=== PATIENT | female | born 1940 | race Caucasian/White ===

== ENCOUNTER 2016-10-15 11:36 | Inpatient (IN) | payer OTHER ==
[~2016-10-15] VITALS: Ht 154.9 cm; Wt 59.1 kg
[2016-10-15 14:22] LABS: EOSINOPHIL (%) 2.3 % (0-5); EOSINOPHIL COUNT 0.2 K/uL (0-0.3); HEMATOCRIT 38.8 % (36.0-46.0); IMMATURE GRANULOCYTE (%) 0.2 % (0.0-0.7); INSTRUMENT ABS NEUTROPHIL CT 4.4 K/uL; LYMPHOCYTE COUNT 1.6 K/uL (1.0-2.8); MCH 32.3 PG (29.0-34.0); MCV 94.9 FL (83-99); MEAN PLAT.VOLUME 10.7 uM^3 (9.5-12.4); MONOCYTE (%) 6.8 % (3-12); MONOCYTE COUNT 0.5 K/uL (0-0.8); NEUTROPHIL (%) 66.3 % (45-76); NEUTROPHIL COUNT 4.4 K/uL (1.8-6.4); PLATELET COUNT 187 K/uL (156-360); RBC DIS.WIDTH-CV 12.9 % (11.8-14.6); RBC DIS.WIDTH-SD 44.8 % (39-53); RED BLOOD COUNT 4.09 M/uL (3.80-5.20); WHITE BLOOD COUNT 6.6 K/uL (4.1-10.2)
[2016-10-15 14:33] LABS: CHLORIDE 107 mEq/L (99-109); POTASSIUM 4.3 mEq/L (3.7-5.4); SODIUM 141 mEq/L (136-147)
[2016-10-15 14:34] LABS: GLUCOSE 102 mg/dL (70-99); INTER. NORMALIZED RATIO 1.1; PROTHROMBIN TIME 10.8 (9.2-11.2)
[2016-10-15 14:36] LABS: ANION GAP 12 MEQ/L (2-14)
[2016-10-15 14:38] LABS: GFR ESTIMATE (CALCULATED) > 59 mL/min/
[2016-10-15 14:39] LABS: UREA NITROGEN (BUN) 16 mg/dL (9-23)
[2016-10-15] MEDS ORDERED: LOPRESSOR25 MG PO (15:25)
[2016-10-15] MEDS ORDERED: LO-DOSE ASPIRIN81 M2 PO (15:26)
[2016-10-15 21:30] VITALS: BP 142/78
[2016-10-15 23:50] VITALS: BP 156/75
[2016-10-16 04:51] LABS: HEMATOCRIT 32.4 % (36.0-46.0)
[2016-10-16 05:06] LABS: CHLORIDE 103 mEq/L (99-109); POTASSIUM 4.8 mEq/L (3.7-5.4); SODIUM 134 mEq/L (136-147)
[2016-10-16 05:09] LABS: ANION GAP 11 MEQ/L (2-14)
[2016-10-16 05:12] LABS: GFR ESTIMATE (CALCULATED) > 59 mL/min/; GLUCOSE 157 mg/dL (70-99)
[2016-10-16 05:13] LABS: UREA NITROGEN (BUN) 14 mg/dL (9-23)
[2016-10-16 08:06] VITALS: BP 132/74
[2016-10-16 12:07] VITALS: BP 161/72
[2016-10-16 15:29] VITALS: BP 132/86
[2016-10-16 23:34] VITALS: BP 174/82
[2016-10-17 05:46] LABS: HEMATOCRIT 28.8 % (36.0-46.0)
[2016-10-17 07:56] VITALS: BP 165/75
[2016-10-17 15:37] VITALS: BP 144/73
[2016-10-18 00:14] VITALS: BP 148/82
[2016-10-18 04:59] LABS: EOSINOPHIL (%) 0.6 % (0-5); EOSINOPHIL COUNT 0.1 K/uL (0-0.3); HEMATOCRIT 28.9 % (36.0-46.0); IMMATURE GRANULOCYTE (%) 0.2 % (0.0-0.7); INSTRUMENT ABS NEUTROPHIL CT 5.9 K/uL; LYMPHOCYTE COUNT 2.3 K/uL (1.0-2.8); MCH 32.8 PG (29.0-34.0); MCHC 34.9 G/DL (30.0-36.0); MCV 93.8 FL (83-99); MEAN PLAT.VOLUME 10.4 uM^3 (9.5-12.4); MONOCYTE (%) 5.4 % (3-12); MONOCYTE COUNT 0.5 K/uL (0-0.8); NEUTROPHIL (%) 67.8 % (45-76); NEUTROPHIL COUNT 5.9 K/uL (1.8-6.4); PLATELET COUNT 185 K/uL (156-360); RBC DIS.WIDTH-CV 12.8 % (11.8-14.6); RBC DIS.WIDTH-SD 43.9 % (39-53)
[2016-10-18 05:03] LABS: RED BLOOD COUNT 3.08 M/uL (3.80-5.20); WHITE BLOOD COUNT 8.8 K/uL (4.1-10.2)
[2016-10-18 05:30] LABS: CHLORIDE 102 mEq/L (99-109); POTASSIUM 4.1 mEq/L (3.7-5.4); SODIUM 135 mEq/L (136-147)
[2016-10-18 05:34] LABS: ANION GAP 9 MEQ/L (2-14); TOTAL BILIRUBIN 0.5 mg/dL (0.0-1.0)
[2016-10-18 05:35] LABS: GLUCOSE 113 mg/dL (70-99)
[2016-10-18 05:36] LABS: ALKALINE PHOSPHATASE 71 IU/L (3-129); GFR ESTIMATE (CALCULATED) > 59 mL/min/
[2016-10-18 05:37] LABS: UREA NITROGEN (BUN) 9 mg/dL (9-23)
[2016-10-18 09:19] VITALS: BP 155/78
[2016-10-18 09:24] VITALS: BP 155/78
[2016-10-18 12:28] VITALS: BP 125/69
[2016-10-19 00:52] VITALS: BP 137/69
[2016-10-19 05:25] LABS: HEMATOCRIT 26.1 % (36.0-46.0); MCH 31.9 PG (29.0-34.0); MCHC 33.7 G/DL (30.0-36.0); MCV 94.6 FL (83-99); MEAN PLAT.VOLUME 10.4 uM^3 (9.5-12.4); PLATELET COUNT 169 K/uL (156-360); RBC DIS.WIDTH-CV 12.8 % (11.8-14.6); RBC DIS.WIDTH-SD 44.1 % (39-53); RED BLOOD COUNT 2.76 M/uL (3.80-5.20); WHITE BLOOD COUNT 8.4 K/uL (4.1-10.2)
[2016-10-19 05:53] LABS: ANION GAP 6 MEQ/L (2-14); CHLORIDE 101 MEQ/L (99-109); GFR ESTIMATE (CALCULATED) > 59 mL/min/; GLUCOSE 100 mg/dL (70-99); POTASSIUM 3.8 MEQ/L (3.7-5.4); SAMPLE HEMOLYSIS CHECK 0; SAMPLE ICTERIC CHECK 0; SAMPLE LIPEMIA CHECK 0; SODIUM 135 MEQ/L (136-147); UREA NITROGEN (BUN) 8 mg/dL (9-23)
[2016-10-19 07:25] VITALS: BP 135/77
[2016-10-19 07:31] VITALS: BP 132/68
[2016-10-19 16:01] VITALS: BP 133/61
[2016-10-19 19:57] VITALS: BP 134/97
[2016-10-20 00:09] VITALS: BP 165/76
[2016-10-20 05:51] LABS: HEMATOCRIT 25.2 % (36.0-46.0); MCV 95.1 FL (83-99)
[2016-10-20 08:33] VITALS: BP 160/74
[2016-10-20] MEDS ORDERED: LOVENOX40 MG/0.4 SC (09:42)
[2016-10-20] MEDS ORDERED: ONDANSETRON ODT4 MG PO (09:42)
[2016-10-20] MEDS ORDERED: ENDOCET 5-3251 EACH PO (09:42)
== END 2016-10-20 15:57 | DRG 493 ==
LOC: EME 11:36 → 3EAST 15:07 → EDOF 15:07 → 3EAST 22:11
PROVIDERS: Emergency Medicine; Orthopaedic Surgery Sports Medicine; Physician Assistant; Student in an Organized Health Care Education/Training Program
PROC: 0QSH05Z Reposition Left Tibia with External Fixation Device, Open Approach (ICD-10-PCS; principal; 2016-10-15)
DX: S82.142A Displaced bicondylar fracture of left tibia, initial encounter for closed fracture (principal); W11.XXXA Fall on and from ladder, initial encounter; Y93.E9 Activity, other interior property and clothing maintenance; Y92.009 Unspecified place in unspecified non-institutional (private) residence as the place of occurrence of the external cause; Y99.8 Other external cause status; D62 Acute posthemorrhagic anemia; R11.2 Nausea with vomiting, unspecified; R00.1 Bradycardia, unspecified; I10 Essential (primary) hypertension; Z96.643 Presence of artificial hip joint, bilateral
CPT/HCPCS: 71010; 73502; 73560; 73590; 73630; 73700; 76000; 80048; 80053; 82306; 85014; 85018; 85025; 85027; 85610; 86900; 86901; 93005; 97530 GP; 99281; 99285; G0378; G8978 GP CK; G8979 CJ; G8980 CJ; G8987 CK; G8988 GO CJ; J0131; J0690; J1170; J1650; J2405; J2765; J3010